=== PATIENT | male | born 1960 | race Caucasian/White ===

== ENCOUNTER 2016-11-11 16:13 | Emergency (ER) | payer OTHER ==
[2016-11-18] MEDS ORDERED: NORCO 5-325 TA1 EACH PO (09:57)
[2016-11-18] MEDS ORDERED: GLUCOTROL5 M1 PO (09:58)
[2016-11-18] MEDS ORDERED: BACTRIM DS TAB1 EACH PO (09:58)
[2016-11-18] MEDS ORDERED: VENTOLIN HFA IN18 GM INH (09:58)
== END 2016-11-11 18:25 | disposition home or self-care (01) ==
LOC: FER 16:13
DX: L02.212 Cutaneous abscess of back [any part, except buttock and flank] (principal); I10 Essential (primary) hypertension; E11.9 Type 2 diabetes mellitus without complications; Z79.84 Long term (current) use of oral hypoglycemic drugs; Z79.899 Other long term (current) drug therapy
CPT/HCPCS: 86403; 87070; 87077; 87186; 87205

== ENCOUNTER 2016-11-14 14:48 | Emergency (ER) | payer OTHER ==
[2016-11-18] MEDS ORDERED: NORCO 5-325 TA1 EACH PO (09:57)
[2016-11-18] MEDS ORDERED: BACTRIM DS TAB1 EACH PO (09:58)
[2016-11-18] MEDS ORDERED: GLUCOTROL5 M1 PO (09:58)
[2016-11-18] MEDS ORDERED: VENTOLIN HFA IN18 GM INH (09:58)
== END 2016-11-14 15:46 | disposition home or self-care (01) ==
LOC: FER 14:48
DX: Z48.817 Encounter for surgical aftercare following surgery on the skin and subcutaneous tissue (principal); L02.212 Cutaneous abscess of back [any part, except buttock and flank]; I10 Essential (primary) hypertension; E11.9 Type 2 diabetes mellitus without complications
CPT/HCPCS: 99282

== ENCOUNTER 2021-10-21 16:12 | Emergency (ER) | payer OTHER ==
[~2021-10-21 16:12] MED LIST: AMARYL2 MG PO; ASPIRIN CHEWABL81 MG PO; BACTRIM DS TAB1 EACH PO; BREO ELLIPTA 11 EACH INH; BUMEX1 MG PO; COREG 6.25MG6.25 MG PO; ENTRESTO 24 MG1 EACH PO; GLUCOTROL5 M1 PO; JANUMET XR 50-1 EACH PO; LEVAQUIN750 MG PO; MUCINEX 600MG600 MG PO; NORCO 5-325 TA1 EACH PO; VENTOLIN HFA IN18 GM INH; ZESTRIL2.5 MG PO; ZOFRAN8 MG PO
[2021-10-21 16:43] LABS: BASOPHIL 0.8 % (0-2); EOSINOPHIL 0.3 % (0-5); HCT 44.1 % (42.0-52.0); LYMPHOCYTE 15.9 % (15-48); MCH 29.6 pg (25.0-31.0); MCV 87.2 fL (78.0-100.0); MPV 10.8 fL (6.0-9.5); NEUTROPHIL 73.7 % (41-80); NRBC 0; PLT 153 K/uL (150-400); RBC 5.06 M/uL (4.70-6.00); RDW 12.8 % (11.5-14.0); WBC 6.2 K/uL (4.0-10.5)
[2021-10-21 16:54] LABS: INR 1.13 (0.9-1.2); PROTHROMBIN TIME 14.2 SECONDS (11.9-13.9); PTT 26.6 SECONDS (24.9-34.6)
[2021-10-21 17:04] LABS: ALBUMIN 3.7 g/dL (3.4-5.0); BILIRUBIN - TOTAL 0.9 mg/dL (0.2-1.0); CREATININE 1.15 mg/dL (0.67-1.17); GLOBULIN (CALCULATION) 4.3 g/dL; POTASSIUM 4.4 mmol/L (3.5-5.1)
[2021-10-21 17:54] LABS: BILIRUBIN NEGATIVE (NEGATIVE); BLOOD TRACE-INTACT Ery/uL (NEGATIVE); CLARITY CLEAR (CLEAR); COLOR YELLOW (YELLOW); GLUCOSE (U) 3+ mg/dL (NORMAL); LEUKOCYTES NEGATIVE Leu/uL (NEGATIVE); NITRITE NEGATIVE (NEGATIVE); PROTEIN 2+ mg/dL (NEGATIVE)
[2021-10-21 18:10] LABS: SQUAMOUS EPITHELIAL CELLS RARE; URINARY RBC RARE; URINARY WBC RARE
== END 2021-10-21 20:16 | disposition home or self-care (01) ==
LOC: FER 16:12
PROVIDERS: Emergency Medicine
DX: B34.9 Viral infection, unspecified (principal); R00.2 Palpitations; I10 Essential (primary) hypertension; E11.9 Type 2 diabetes mellitus without complications; J44.9 Chronic obstructive pulmonary disease, unspecified; Z88.8 Allergy status to other drugs, medicaments and biological substances
CPT/HCPCS: 36415; 71045; 80053; 81001; 83880; 84484; 85025; 85610; 85730; 93005; J2405